=== PATIENT | female | born 1945 | race Hispanic/Latino ===

== ENCOUNTER 2018-04-06 22:01 | Observation (INO) | payer MEDICARE ==
[2018-04-07 00:25] LABS: BASO % 0.2 % (0.0-2.0); EOS # 0.1 K/uL (0.0-0.7); EOS % 0.5 % (0.0-4.0); HEMOGLOBIN 11.3 g/dL (12.0-16.0); LYMPH # 1.3 K/uL (1.0-4.3); LYMPH % 12.6 % (20.0-40.0); MEAN CELL VOLUME 78.6 fl (81.0-99.0); MEAN CORPUSCULAR HEMOGLOBIN 25.6 pg (27.0-31.0); MEAN CORPUSCULAR HGB CONC 32.6 g/dL (33.0-37.0); MEAN PLATELET VOLUME 7.8 fl (7.2-11.7); MONO # 0.7 K/uL (0.0-0.8); MONO % 6.4 % (0.0-10.0); NEUT # 8.5 K/uL (1.8-7.0); NEUT % 80.3 % (50.0-75.0); RBC 4.41 Mil/uL (3.80-5.20); RED CELL DISTRIBUTION WIDTH 14.9 % (11.5-14.5); WHITE BLOOD COUNT 10.7 K/uL (4.8-10.8)
[2018-04-07 00:28] LABS: ALB/GLOB RATIO 1.3 (1.0-2.1); ALBUMIN 4.3 g/dL (3.5-5.0); ALT/SGPT 15 U/L (9-52); AST/SGOT 24 U/L (14-36); BLOOD UREA NITROGEN 8 mg/dl (7-17); CALCIUM 9.1 mg/dL (8.4-10.2); GFR NON-AFRICAN AMERICAN > 60
[2018-04-07] MEDS ORDERED: Dextrose 5%/0.45% NS 1,000 ML IV SCH (01:00)
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
[2018-04-07 05:46] LABS: SQUAMOUS EPITHIAL 2 /hpf (0-5); URINE BILIRUBIN NEGATIVE (NEGATIVE); URINE BLOOD NEGATIVE (NEGATIVE); URINE CLARITY CLEAR (Clear); URINE COLOR STRAW (YELLOW); URINE GLUCOSE (UA) >=500 mg/dL (NEGATIVE); URINE LEUKOCYTE ESTERASE NEG Leu/uL (Negative); URINE PROTEIN NEGATIVE (NEGATIVE); URINE UROBILINOGEN 0.2-1.0 mg/dL (0.2-1.0)
[2018-04-07] MEDS ORDERED: Insulin Detemir 100 Units/ml Inj SC SCH ×2 (09:00→22:00)
[2018-04-07 14:44] LABS: IRON 43 ug/dL (37-170)
[2018-04-07 14:54] LABS: % IRON SATURATION 14 % (20-55); TOTAL IRON BINDING CAPACITY 313 ug/dL (250-450)
[2018-04-07] MEDS: Insulin Lispro (humaLOG) 100 Units/ml Inj SC SCH ×2 (16:17→21:51)
[2018-04-07] MEDS ORDERED: Insulin Lispro (humaLOG) 100 Units/ml Inj SC SCH (16:30)
--- NOTE | 2018-04-07 23:51 | CARD ---
APPROVED REPORT Date of service: 04/06/2018 EKG Measurement Heart [id number] ID [id number] <Conclusion> Sinus rhythm with premature atrial complexes Otherwise normal ECG
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
[2018-04-08] MEDS ORDERED: Levothyroxine 75 MCG TAB PO SCH (06:30)
[2018-04-08 08:11] VITALS: RESP 20
[2018-04-08] MEDS: Insulin Lispro (humaLOG) 100 Units/ml Inj SC SCH ×3 (09:01→16:57)
[2018-04-08 13:27] LABS: FOLATE > 20.0 ng/mL
[2018-04-08 16:50] VITALS: BP 119/73; PULSE 93; TEMP 98; O2SAT 98
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
[2018-04-09] MEDS ORDERED: [UNRECOGNIZED DRUG - OTHER] PO SCH (09:00)
[2018-04-09] MEDS ORDERED: POTASSIUM GLUCONATE PO SCH (09:00)
[2018-04-09] MEDS ORDERED: [UNRECOGNIZED DRUG - OTHER] PO SCH (09:00)
== END 2018-04-08 19:28 | disposition home or self-care (01) ==
LOC: H.ER 22:01 → H.ERHOLD 04-07 01:00 → H.MEDSURG1 04-07 09:15
PROVIDERS: ADMIT Internal Medicine; ATTEND Internal Medicine
DX: E11.649 Type 2 diabetes mellitus with hypoglycemia without coma (principal); V89.2XXA Person injured in unspecified motor-vehicle accident, traffic, initial encounter; Y92.410 Unspecified street and highway as the place of occurrence of the external cause; R55 Syncope and collapse; D50.9 Iron deficiency anemia, unspecified; E03.9 Hypothyroidism, unspecified
CPT/HCPCS: 36415; 80053; 81003; 82607; 82728; 82746; 82948; 83036; 83540; 83550; 84443; 84484; 85025; 85044; 87086; 93005; 99281; G0328; G0378; J1644; J3420; J7042